=== PATIENT | female | born 1980 ===

== ENCOUNTER 2018-03-23 05:44 | Inpatient (IN) | payer BC ==
[~2018-03-23] VITALS: Ht 157.5 cm; Wt 95.9 kg
[~2018-03-23 05:44] MED LIST: Birth Control PO
[2018-03-23] MEDS ORDERED: LACTATED RINGERS 1,000 ML IV SCH (06:10)
[2018-03-23] MEDS ORDERED: GABAPENTIN 300 MG CAPSULE PO ONE (06:30)
[2018-03-23] MEDS ORDERED: OxyconTIN ER 20 MG TAB.ER PO ONE (06:30)
[2018-03-23] MEDS ORDERED: ACETAMINOPHEN 500 MG TABLET PO ONE (06:30)
[2018-03-23] MEDS ORDERED: ONDANSETRON ODT 8 MG PO ONE (06:30)
[2018-03-23] MEDS ORDERED: LIDOCAINE-MPF 1%, 2ML INFIL ONE (06:30)
[2018-03-23] MEDS ORDERED: SCOPOLAMINE PATCH, 1.5MG PATCH.TD72 TD ONE (06:30)
[2018-03-23] MEDS ORDERED: MIDAZOLAM 1 MG/ML, 2ML ONE (06:37)
[2018-03-23] MEDS ORDERED: FENTANYL PF 250 MCG/5ML ONE ×2 (06:37→08:00)
[2018-03-23] MEDS ORDERED: ROCURONIUM 10MG/ML,5ML ONE (06:38)
[2018-03-23] MEDS ORDERED: SUCCINYLCHOLINE 20 MG/ML, 10ML ONE (06:39)
[2018-03-23] MEDS ORDERED: CEFAZOLIN 1,000 MG ONE ×2 (06:40)
[2018-03-23] MEDS ORDERED: DEXAMETHASONE 4 MG/ML, 1ML ONE ×2 (06:40)
[2018-03-23] MEDS ORDERED: WATER-INJECTION,STERILE 10 ML IV ONE (06:40)
[2018-03-23] MEDS ORDERED: PROPOFOL 10 MG/ML, 20ML ONE (06:43)
[2018-03-23] MEDS ORDERED: PROPOFOL 50 ML ONE ×2 (06:46→07:57)
[2018-03-23] MEDS ORDERED: THROMBIN 20,000 UNIT VIAL TP ONE (07:00)
[2018-03-23] MEDS ORDERED: BUPIVACAINE/PF-EPI 0.5% 1:200K ONE (07:00)
[2018-03-23] MEDS ORDERED: BACITRACIN 50,000 UNIT ONE (07:01)
[2018-03-23 07:11] LABS: HCG UR SG 1.026 (1.003-1.030)
[2018-03-23] MEDS ORDERED: KETOROLAC 30 MG/1 ML ONE (07:29)
[2018-03-23] MEDS ORDERED: FENTANYL PF 100 MCG/2ML IV PRN (07:30)
[2018-03-23] MEDS ORDERED: ONDANSETRON ODT 8 MG PO PRN (07:30)
[2018-03-23] MEDS ORDERED: PROMETHAZINE 12.5 MG SUPP PR PRN (07:30)
[2018-03-23] MEDS ORDERED: ONDANSETRON 2MG/ML, 2ML IV PRN ×2 (07:30→11:30)
[2018-03-23] MEDS ORDERED: hydrALAzine 20 MG/ML, 1ML IV PRN (07:30)
[2018-03-23] MEDS ORDERED: MORPHINE SULFATE 4 MG/ML, 1ML IVPush PRN (07:30)
[2018-03-23] MEDS ORDERED: PROMETHAZINE 25 MG/ML, 1ML IV PRN (07:30)
[2018-03-23] MEDS ORDERED: DIAZEPAM 5 MG/ML, 2ML IVPush PRN (07:30)
[2018-03-23] MEDS ORDERED: OXYcodone 5 MG/5 ML ORAL.SOL UDC PO PRN (07:30)
[2018-03-23] MEDS ORDERED: LABETALOL 5MG/ML, 20ML IV PRN ×2 (07:30→11:30)
[2018-03-23] MEDS ORDERED: PROMETHAZINE 25 MG SUPP PR PRN (07:30)
[2018-03-23] MEDS ORDERED: HYDROmorphone 1 MG/ML, 1ML IV PRN (07:30)
[2018-03-23] MEDS ORDERED: MEPERIDINE/PF 25MG/0.5ML IVPush PRN (07:30)
[2018-03-23] MEDS ORDERED: OXYcodone 5 MG/5 ML ORAL.SOL UDC ONE (09:13)
[2018-03-23] MEDS ORDERED: METHOCARBAMOL 1,000 MG in DEXTROSE 5% 100 ML IV ONE ×2 (10:00→11:30)
[2018-03-23] MEDS ORDERED: morphine SULFATE 10 MG/ML, 1ML IV PRN (11:30)
[2018-03-23] MEDS ORDERED: BISACODYL 10 MG SUPP PR PRN (11:30)
[2018-03-23] MEDS ORDERED: MAGNESIUM HYDROXIDE 8%, 30ML UDC PO PRN (11:30)
[2018-03-23] MEDS ORDERED: DIPHENHYDRAMINE 50 MG/ML, 1ML IVPush PRN (11:30)
[2018-03-23] MEDS ORDERED: PROMETHAZINE 25 MG/ML, 1ML IM PRN (11:30)
[2018-03-23] MEDS ORDERED: ACETAMINOPHEN 650 MG SUPP PR PRN (11:30)
[2018-03-23] MEDS ORDERED: ACETAMINOPHEN 325 MG TABLET PO PRN (11:30)
[2018-03-23] MEDS: HYDROcodone/APAP 10/325 MG TABLET PO PRN ×3 (11:49→21:31)
[2018-03-23] MEDS: NS + 20MEQ KCL 1,000 ML IV SCH ×2 (11:51→23:33)
[2018-03-23 13:07] VITALS: BP 108/69
[2018-03-23] MEDS ORDERED: CEFAZOLIN PMX 2GM/50ML 50 ML IVPB SCH (15:30)
[2018-03-23] MEDS: KETOROLAC 30 MG/1 ML IV SCH (16:16)
[2018-03-23 19:59] VITALS: BP 109/58
[2018-03-23] MEDS ORDERED: ZOLPIDEM 5MG TABLET PO PRN (21:00)
[2018-03-23] MEDS: METHOCARBAMOL 750 MG in DEXTROSE 5% 100 ML IV SCH (21:17)
[2018-03-23] MEDS ORDERED: CEFAZOLIN 2,000 MG in SODIUM CHLORIDE 0.9% 50 ML IVPB SCH (23:30)
[2018-03-24 00:12] VITALS: BP 102/64
[2018-03-24] MEDS: KETOROLAC 30 MG/1 ML IV SCH ×2 (00:54→08:43)
[2018-03-24 04:04] VITALS: BP 106/67
[2018-03-24] MEDS: METHOCARBAMOL 750 MG in DEXTROSE 5% 100 ML IV SCH (06:29)
[2018-03-24] MEDS: HYDROcodone/APAP 10/325 MG TABLET PO PRN ×2 (06:30→10:56)
[2018-03-24 07:03] VITALS: BP 92/47
[2018-03-24] MEDS ORDERED: SENNA/DOCUSATE TABLET PO SCH (09:00)
[2018-03-24] MEDS ORDERED: DOXY100T PO (09:32)
[2018-03-24] MEDS ORDERED: OXYC5CAP2 PO (09:32)
[2018-03-24] MEDS ORDERED: AMOX1TAB64 PO (09:33)
[2018-03-24] MEDS ORDERED: CYCL-259 PO (09:39)
[2018-03-24] MEDS ORDERED: HYDR-3307 PO (09:39)
[2018-03-24] MEDS ORDERED: MAGNESIUM HYDROXIDE 8%, 30ML UDC PO ONE (10:00)
[2018-03-24 11:00] VITALS: BP 106/75
[2018-03-25] MEDS ORDERED: METHOCARBAMOL 750 MG TABLET PO SCH (19:30)
== END 2018-03-24 11:18 | disposition home or self-care (01) | DRG 518 ==
LOC: OUT 05:44 → EDSTATUS 07:30 → 4NOR 10:15 → OUT 10:30 → 4NOR 10:30 → OBSVTOIN 10:30 → DCLOUNGE 03-24 11:02
PROVIDERS: ADMIT Neurological Surgery; ATTEND Neurological Surgery
PROC: 0RB30ZZ Excision of Cervical Vertebral Disc, Open Approach (ICD-10-PCS; 2018-03-23)
PROC: 4A11X4G Monitoring of Peripheral Nervous Electrical Activity, Intraoperative, External Approach (ICD-10-PCS; 2018-03-23)
PROC: 0RR30JZ Replacement of Cervical Vertebral Disc with Synthetic Substitute, Open Approach (ICD-10-PCS; principal; 2018-03-23 07:30)
DX: M50.022 Cervical disc disorder at C5-C6 level with myelopathy (principal); M48.02 Spinal stenosis, cervical region
CPT/HCPCS: 72040; 81025; C1776; G0378; J0690; J1100; J1885; J2250; J2704; J3010; J3480; Q0162; J0330; J2800; J7120